=== PATIENT | male | born 1965 | race Hispanic/Latino ===

== ENCOUNTER 2016-05-24 11:50 | Inpatient (IN) | payer BC ==
[~2016-05-24] VITALS: Ht 182.9 cm; Wt 94.0 kg
[~2016-05-24 11:50] MED LIST: ALEVE220 MG PO; FLEXERIL5 MG PO; NAPROSYN375 MG PO; NO HOME MEDS; PERCOCET 5/325M1 TAB PO
--- NOTE | 2016-05-24 12:00 | NUR ---
PATIENT AMBULATED TO LOBBY AWAITING ROOM ASSIGNMENT
--- NOTE | 2016-05-24 12:55 | NUR ---
IN TO ASSESS AND DISCUSS P.O.C.. ALL QUESTIONs ANSWERED
[2016-05-24 13:08] LABS: HEMATOCRIT 47.3 % (39.0-50.0); IMMATURE GRANULOCYTES 0.4 % (0.0-1.0); MEAN CELL VOLUME 89.8 fL CALC (80.0-100.0); MEAN CORPUSCULAR HGB 30.4 pG CALC (26.0-32.0); MEAN CORPUSCULAR HGB CONC 33.8 g/L CALC (32.0-36.0); NEUT# 6.06 thou/uL (1.82-7.42); RED BLOOD COUNT 5.27 mill/uL (4.70-6.10); RED CELL DISTRI WIDTH 11.9 % (11.5-15.5)
[2016-05-24 13:24] LABS: ALBUMIN 4.6 g/dL (3.2-5.0); ALKALINE PHOSPHATASE 84 u/l (38-126); ANION GAP 18 (6-22 (CALC)); BILIRUBIN, TOTAL 0.8 mg/dL (0.0-1.4); BUN 10 mg/dL (9-20); BUN/CREATININE RATIO 10 (12-20 (CALC)); CALCIUM 9.6 mg/dL (8.4-10.2); CARBON DIOXIDE 26 mmol/l (22-30); CHLORIDE 102 mmol/l (95-108); GFR > 60 ML/MIN (>=60 (CALC)); GFR FOR AFR.AMER. > 60 ML/MIN (>=60 (CALC)); GLUCOSE 106 mg/dL (75-110); POTASSIUM 4.6 mmol/l (3.5-5.1); SGOT/AST 22 u/l (17-59); SGPT/ALT 37 u/l (21-72); SODIUM 141 mmol/l (137-146); TOTAL PROTEIN 8.8 g/dL (6.3-8.2)
--- NOTE | 2016-05-24 13:35 | NUR ---
MEDICATED PER ORDER
--- NOTE | 2016-05-24 14:46 | NUR ---
IN FOR REASSESSMENT. PER Pt "PAIN MUCH LESS NOTICABLE"
[2016-05-24 15:10] LABS: URINE BILIRUBIN - DIPSTICK NEGATIVE (NEGATIVE); URINE BLOOD DIPSTICK TRACE-INTACT (NEGATIVE); URINE COLOR YELLOW; URINE GLUCOSE - DIPSTICK NEGATIVE (NEGATIVE); URINE KETONE NEGATIVE (NEGATIVE); URINE LEUK ESTERASE TRACE (Negative); URINE NITRITE - DIPSTICK NEGATIVE (Negative); URINE SPECIFIC GRAVITY >=1.030; URINE UROBILINOGEN - DIPSTICK 0.2 E.U./dL (0.2)
[2016-05-24 15:11] LABS: URINE CLARITY SLIGHT CLOUDY; URINE PROTEIN - DIPSTICK Trace mg/dL (NEG-TRACE)
--- NOTE | 2016-05-24 16:43 | NUR ---
left via stretcher /C w/c to [facility] FOR CT OF Abd
--- NOTE | 2016-05-24 19:08 | NUR ---
PT RETURNED FROM [facility] FOLLOWING CT SCAN.
--- NOTE | 2016-05-24 19:20 | NUR ---
PT C/O ABD PAIN, REQUESTED PAIN MED.
--- NOTE | 2016-05-24 20:26 | NUR ---
SBAR PRINTED TO FLOOR
--- NOTE | 2016-05-24 20:44 | NUR ---
SBAR RE-PRINTED TO [id number]
--- NOTE | 2016-05-24 20:56 | NUR ---
REPORT GIVEN TO RICH OZUNA MED/SURG
[2016-05-24 21:05] VITALS: BP 128/66
--- NOTE | 2016-05-24 21:05 | NUR ---
PT TRANSFERED TO FLOOR IN STABLE CONDITION VIA STRETCHER ACCOMPANIED BY MIRANDARN;PT AMBULATED TO STANDING SCALE WITH STEADY GAIT;RESPIRATIONS EVEN AND UNLABORED ON RA;IV FLUIDS INFUSING WELL TO LAC;PT COMPLAINS OF NAUSEA;EMESIS BAG PROVIDED;AWAITING MD ORDERS;VS OBTAINED;PT DENIES ANY PAIN AT THIS TIME;PT ORIENTED TO ROOM AND CALL LIGHT SYSTEM AND VERBALIZES UNDERSTANDING;ASSESSMENT COMPLETED;PT MADE AWARE OF NPO STATUS;PT COMPLAINS OF LEFT LOWER ABDOMINAL TENDERNESS;PT STATED LAST BM TO BE ON 05/24 AND WAS DIARRHEA;SKIN INTACT;PT DENIES ANY OTHER NEEDS AT THIS TIME;URINAL AT BEDSIDE;BED IN LOWEST POSITION WITH CALL LIGHT IN REACH;WILL CONTINUE TO MONITOR
--- NOTE | 2016-05-24 21:05 | NUR ---
PT TO 290 VIA STRETCHER WITH RN.
--- NOTE | 2016-05-25 00:45 | NUR ---
PT SLEEPING IN SEMI FOWLERS POSITION;IV FLUIDS INFUSING WELL;NO S/S OF DISTRESS NOTED;URINAL AT BEDSIDE;RESPIRATIONS EVEN AND UNLABORED ON RA;BED IN LOWEST POSITION WITH CALL LIGHT IN REACH;WILL CONTINUE TO MONITOR
[2016-05-25 03:29] VITALS: BP 121/71
--- NOTE | 2016-05-25 03:30 | NUR ---
PT RESTING IN SUPINE POSITION;PT COMPLAINS OF LOWER BACK AND ABDOMINAL PAIN RATING RATING 7/10 ON THE PAIN SCALE AND REQUESTS PRN PAIN MEDICATION;PT TO BE MEDICATED ACCORDINGLY;IV FLUIDS INFUSING WELL TO LAC;PT DENIES ANY OTHER NEEDS AT THIS TIME;BED IN LOWEST POSITION WITH CALL LIGHT IN REACH;WILL CONTINUE TO MONITOR
[2016-05-25 05:37] LABS: HEMATOCRIT 40.2 % (39.0-50.0); HEMOGLOBIN 13.5 g/dl (14.0-18.0); IMMATURE GRANULOCYTES 0.2 % (0.0-1.0); MEAN CELL VOLUME 90.1 fL CALC (80.0-100.0); MEAN CORPUSCULAR HGB 30.3 pG CALC (26.0-32.0); MEAN CORPUSCULAR HGB CONC 33.6 g/L CALC (32.0-36.0); NEUT# 4.03 thou/uL (1.82-7.42); RED BLOOD COUNT 4.46 mill/uL (4.70-6.10); RED CELL DISTRI WIDTH 11.8 % (11.5-15.5)
[2016-05-25 05:43] LABS: ALBUMIN 3.4 g/dL (3.2-5.0); ALKALINE PHOSPHATASE 56 u/l (38-126); ANION GAP 9 (6-22 (CALC)); BILIRUBIN, TOTAL 0.5 mg/dL (0.0-1.4); BUN 8 mg/dL (9-20); BUN/CREATININE RATIO 9 (12-20 (CALC)); CALCIUM 8.5 mg/dL (8.4-10.2); CARBON DIOXIDE 30 mmol/l (22-30); CHLORIDE 104 mmol/l (95-108); CREATININE 0.9 mg/dL (0.7-1.3); GFR > 60 ML/MIN (>=60 (CALC)); GFR FOR AFR.AMER. > 60 ML/MIN (>=60 (CALC)); GLUCOSE 118 mg/dL (75-110); POTASSIUM 4.4 mmol/l (3.5-5.1); SGOT/AST 17 u/l (17-59); SGPT/ALT 35 u/l (21-72); SODIUM 138 mmol/l (137-146); TOTAL PROTEIN 6.3 g/dL (6.3-8.2)
--- NOTE | 2016-05-25 07:00 | NUR ---
RECEIVED BEDSIDE REPORT FROM RICH OZUNA. PT RESTING IN SEMI FOWLERS POSITION WITH EYES CLOSED, AWAKENS EASILY. RESPS EVEN AN DUNLABORED ON ROOM AIR. #22 LAC INFUSING WITHOUT DIFFICULTY, SITE APPEARS HEALTHY. VOICES NO C/O AT THIS TIME. PLAN OF CARE DISCUSSED. SAFETY PRECAUTIONS REINFORCED. BED IN LOWEST POSITION WITH WHEELS LOCKED. CALL LIGHT WITHIN REACH.
[2016-05-25 08:11] VITALS: BP 114/63
--- NOTE | 2016-05-25 12:00 | NUR ---
TOLERATING CLEAR LIQUID DIET WITHIUT C/O NAUSEA OR VOMITING. MEDCIATED WITH MORPHINE 2MG IVP FOR C/O 7/10 ABD PAIN. CALL LIGHT WITHIN REACH. FAMILY AT BEDSIDE.
--- NOTE | 2016-05-25 14:05 | NUR ---
DR SANTIAGO IN TO SE PT, NEW ORDERS RECEIVED.
[2016-05-25 16:00] VITALS: BP 120/70
--- NOTE | 2016-05-25 18:54 | NUR ---
IN SEMI FOWLERS, RESPS EVEN AND UNLABORED ON ROOM AIR. C/O 09/18 ABD PAIN, MEDICATED WITH MORPHINE 2MG IVP FOR RELIEF. PO FLUIDS OFFERED. CALL LIGHT WITHIN REACH. ENCOURAGED PT TO CALL FOR ANY NEEDS.
[2016-05-25 19:27] VITALS: BP 147/73
--- NOTE | 2016-05-25 20:10 | NUR ---
BEDSIDE REPORT RECEIVED FROM NIGHAT SHEPARD. PT SITTING UP IN BED READING A BOOK. MORPHINE GIVEN AT SHIFT CHANGE, PT CONTINUES TO REPORT PAIN TO ABDOMEN. NO RESPIRTORY DISTRESS NOTED. PLAN OF CARE DISCUSSED. ENCOURAGED TO VERBALIZE CONCERNS. STATES UNDERSTANDING. SAFETY MEASURES IN PLACE. CALL LIGHT SYSTEM REVIEWED AND IN REACH.
--- NOTE | 2016-05-26 02:30 | NUR ---
PT RESTING SUPINE IN BED, ALERT AND ORIENTED. STATES THAT PAIN MEDICATION WAS EFFECTIVE. NO RESPIRATORY DISTRESS NOTED. IV SITE APPEARS HEALTHY WITHOUT SIGNS OF INFILTRATION OR PHLEBITIS. PT DENIES NEEDS AT THIS TIME. REMINDED TO CALL FOR ANY CHANGES OR NEEDS. SAFETY MEASURES IN PLACE. CALL LIGHT WITHIN REACH.
[2016-05-26 04:00] VITALS: BP 110/70
--- NOTE | 2016-05-26 04:00 | NUR ---
PT C/O NAUSEA AT THIS TIME AND ZOFRAN GIVEN WITH GOOD EFFECT. INSTRUCTED TO NOTIFY NURSE OF ANY FURTHER CHANGES. SAFETY MEASURES IN PLACE. CALL LIGHT WITHIN REACH.
[2016-05-26 05:26] LABS: ANION GAP 13 (6-22 (CALC)); BUN 9 mg/dL (9-20); BUN/CREATININE RATIO 10 (12-20 (CALC)); CARBON DIOXIDE 27 mmol/l (22-30); CHLORIDE 102 mmol/l (95-108); CREATININE 0.9 mg/dL (0.7-1.3); GFR > 60 ML/MIN (>=60 (CALC)); GFR FOR AFR.AMER. > 60 ML/MIN (>=60 (CALC)); GLUCOSE 91 mg/dL (75-110); POTASSIUM 4.2 mmol/l (3.5-5.1); SODIUM 138 mmol/l (137-146)
[2016-05-26 05:32] LABS: HEMATOCRIT 42.1 % (39.0-50.0); HEMOGLOBIN 14.1 g/dl (14.0-18.0); IMMATURE GRANULOCYTES 0.2 % (0.0-1.0); MEAN CORPUSCULAR HGB 30.1 pG CALC (26.0-32.0); MEAN CORPUSCULAR HGB CONC 33.5 g/L CALC (32.0-36.0); NEUT# 2.88 thou/uL (1.82-7.42); RED BLOOD COUNT 4.68 mill/uL (4.70-6.10); RED CELL DISTRI WIDTH 11.8 % (11.5-15.5)
--- NOTE | 2016-05-26 07:35 | NUR ---
PT IS RELAXING IN BED WITH NO DISTRESS NOTED. IV SITE IS FREE FROM REDNESS OR EDEMA.
[2016-05-26 08:03] VITALS: BP 114/76
--- NOTE | 2016-05-26 08:06 | NUR ---
ASSESSMENT IS COMPLETED: LEFT LOWER QUAD PAIN. IV SITE IS FREE FROM REDNESS OR EDEMA. CONTINUE TO OBSERVE AND MONITOR.
[2016-05-26] MEDS ORDERED: TRAMADOL HCL50 MG PO (10:33)
[2016-05-26] MEDS ORDERED: Levaquin PO (10:33)
[2016-05-26] MEDS ORDERED: METRONIDAZOL500 MG PO (10:33)
--- NOTE | 2016-05-26 12:30 | NUR ---
PT IS SITTING UP IN BED WITH AT BEDSIDE. NO DISTRESS NOTED. IV SITE IS FREE FROM REDNESS OR EDEMA. IV SITE DISCONTINUED CATHETER INTACT. DISCHARGE INSTRUCTIONS GIVEN.
--- NOTE | 2016-05-26 12:45 | NUR ---
Discharge instructions given. Patient verbalizes understanding of same. Discharged in stable condition via Wheelchair to Home with family. All belongings sent with pt.
== END 2016-05-26 12:34 | disposition home or self-care (01) | DRG 391 ==
LOC: ENPENDDIS → ED 11:50 → ED-I 19:22 → ED 20:23 → MS2 20:24
PROVIDERS: Emergency Medicine; Internal Medicine; ADMIT Internal Medicine; ATTEND Internal Medicine
DX: K57.32 Diverticulitis of large intestine without perforation or abscess without bleeding (principal); J18.9 Pneumonia, unspecified organism
CPT/HCPCS: J1650

== ENCOUNTER 2016-06-18 18:15 | Inpatient (IN) | payer BC ==
[~2016-06-18] VITALS: Ht 182.9 cm; Wt 97.6 kg
[~2016-06-18 18:15] MED LIST changes: +Levaquin PO; +METRONIDAZOL500 MG PO; +TRAMADOL HCL50 MG PO
--- NOTE | 2016-06-18 18:21 | NUR ---
PATIENT TO ROOM VIA EMS PROVIDER AT BEDSIDE EVALUATING PATIENT.
--- NOTE | 2016-06-18 18:30 | NUR ---
COMPLETED 1000CC BOLUS NS EMS FLUIDS.
--- NOTE | 2016-06-18 18:35 | NUR ---
PT C/O LLQ PAIN, DENIES BM X5 DAYS. PT STATES FEVER, CHILLS AND VOMITING X4 DAYS
--- NOTE | 2016-06-18 18:45 | NUR ---
LUNGS CLEAR, BS HYPERACTIVE AND TYMPANIC. ABD DISTENDED AND FIRM. LLQ TENDER TO TOUCH.
[2016-06-18] MEDS ORDERED: FLEXERIL5 MG PO (18:58)
--- NOTE | 2016-06-18 19:01 | NUR ---
COMPLETED 1000CC BOLUS NS. PT TOLERATED WELL.VSS.
[2016-06-18 19:19] LABS: ALBUMIN 2.7 g/dL (3.2-5.0); ALKALINE PHOSPHATASE 86 u/l (38-126); AMYLASE < 30 u/l (30-110); ANION GAP 10 (6-22 (CALC)); BILIRUBIN, TOTAL 0.7 mg/dL (0.0-1.4); BUN 13 mg/dL (9-20); BUN/CREATININE RATIO 16 (12-20 (CALC)); CALCIUM 8.1 mg/dL (8.4-10.2); CARBON DIOXIDE 24 mmol/l (22-30); CHLORIDE 106 mmol/l (95-108); CREATININE 0.8 mg/dL (0.7-1.3); GFR > 60 ML/MIN (>=60 (CALC)); GFR FOR AFR.AMER. > 60 ML/MIN (>=60 (CALC)); GLUCOSE 145 mg/dL (75-110); LIPASE 44 u/l (23-300); POTASSIUM 3.1 mmol/l (3.5-5.1); SGOT/AST 24 u/l (17-59); SGPT/ALT 38 u/l (21-72); SODIUM 137 mmol/l (137-146); TOTAL PROTEIN 5.3 g/dL (6.3-8.2)
--- NOTE | 2016-06-18 19:20 | NUR ---
URINE SENT OFF ON PT. NOTICED SOME BLOOD IN URINE, PT DENIES ANY PAIN OR BURNING WITH URINATION WHEN ASKED
[2016-06-18 19:26] LABS: URINE BILIRUBIN - DIPSTICK NEGATIVE (NEGATIVE); URINE BLOOD DIPSTICK LARGE (NEGATIVE); URINE COLOR YELLOW; URINE GLUCOSE - DIPSTICK 250 mg/dL (NEGATIVE); URINE KETONE TRACE mg/dL (NEGATIVE); URINE NITRITE - DIPSTICK NEGATIVE (Negative); URINE PH 5.5 (4.5-8.0); URINE PROTEIN - DIPSTICK 30 mg/dL (NEG-TRACE)
[2016-06-18 19:38] LABS: INFLUENZA A NONE DETECTED (NONE DETECT); INFLUENZA B NONE DETECTED (NONE DETECT)
--- NOTE | 2016-06-18 19:39 | NUR ---
LAB IS COMING TO DO A REDRAW OF THE CBC.
[2016-06-18 19:46] LABS: URINE CLARITY TURBID; URINE LEUK ESTERASE SMALL (NEGATIVE)
[2016-06-18 19:52] LABS: HEMATOCRIT 36.9 % (39.0-50.0); HEMOGLOBIN 12.5 g/dl (14.0-18.0); IMMATURE GRANULOCYTES 0.2 % (0.0-1.0); MEAN CELL VOLUME 88.3 fL CALC (80.0-100.0); MEAN CORPUSCULAR HGB 29.9 pG CALC (26.0-32.0); MEAN CORPUSCULAR HGB CONC 33.9 g/L CALC (32.0-36.0); RED BLOOD COUNT 4.18 mill/uL (4.70-6.10); RED CELL DISTRI WIDTH 12.8 % (11.5-15.5)
[2016-06-18 19:53] LABS: PLATELET COUNT 65 thou/uL (130-400)
[2016-06-18 19:56] LABS: BAND 43 % (0-8); MANUAL DIFFERENTIAL YES
[2016-06-18 20:03] LABS: URINE BACTERIA FEW hpf; URINE RBC TNTC RBC/hpf (0-5); URINE SQUAMOUS EPITHELIAL CELL FEW EPI/hpf (0-FEW)
--- NOTE | 2016-06-18 20:25 | NUR ---
2ND LACTIC ACID DRAWN
--- NOTE | 2016-06-18 21:14 | NUR ---
pt resting quietly on stretcher, with family at bedside
--- NOTE | 2016-06-18 21:20 | NUR ---
PT STATES FEELING A LITTLE NAUSEATED. NOTIFIED, ORDERS RECEIVED
--- NOTE | 2016-06-18 21:49 | NUR ---
REPORT GIVEN TO NATE FOR MED SURG ADMISSION. GAVE REPORT TO JOSE ALEJANDRO DISLA WHO WILL BE TAKING OVER TRANSPORT OF PT.
--- NOTE | 2016-06-18 21:55 | NUR ---
PT. TRANSFERED TO [facility] VIA STRETCHER. NO C/O AT THIS TIME.
[2016-06-18 21:57] VITALS: BP 112/68
--- NOTE | 2016-06-18 21:57 | NUR ---
RECEIVED FROM ER VIA STRETCHER ACCOMPANIED BY ER TAMRA, AMBULATING TO STANDING SCALE THEN TO BED WITH STEADY GAIT. A/O X3, RESPIRATIONS EVEN AND UNLABORED. IV FLUIDS INFUSING TO RW AT 200CC/HR. DENIES NAUSEA AT THIS TIME. PROVIDED WITH CLEAR LIQUIDS AND CRAKERS. MEDICATED WITH DILAUDID IN ER AND STATES PAIN TO ABDOMEN IS 3/[address] HOLLINS CALLED AND NOTIFIED OF PT'S ARRIVAL TO [facility], NEW ORDERS RECEIVED, PT AWARE. WILL BOLUS WITH 2 MORE NS 1000ML BAGS, MORPHINE, TYLENOL AND ZOFRAN PRN. CALL LIGHT IN REACH, WILL CONTINUE TO MONITOR.
[2016-06-18 23:30] VITALS: BP 109/71
--- NOTE | 2016-06-19 00:54 | NUR ---
2000ML BOLUS COMPLETE, NS INFUSING AT 100ML/HR. VOICES NO CONCERNS.
[2016-06-19 03:38] VITALS: BP 97/65
--- NOTE | 2016-06-19 04:33 | NUR ---
MEDICATED WITH MORPHINE 2MG IV FOR C/O LLQ PAIN 09/18. DENIES NAUSEA. IV FLUIDS INFUSING TO RFA WITH NO COMPLICATIONS. CALL LIGHT IN REACH.
[2016-06-19 07:32] VITALS: BP 111/70
--- NOTE | 2016-06-19 07:59 | NUR ---
DR. COLES IN TO SEE PT; PLAN OF CARE DISCUSSED
--- NOTE | 2016-06-19 08:51 | NUR ---
DR. DALY NOTIFIED OF CONSULT
[2016-06-19 09:36] LABS: ANION GAP 10 (6-22 (CALC)); BUN 9 mg/dL (9-20); BUN/CREATININE RATIO 12 (12-20 (CALC)); CALCIUM 7.8 mg/dL (8.4-10.2); CARBON DIOXIDE 25 mmol/l (22-30); CHLORIDE 109 mmol/l (95-108); CREATININE 0.7 mg/dL (0.7-1.3); GFR > 60 ML/MIN (>=60 (CALC)); GFR FOR AFR.AMER. > 60 ML/MIN (>=60 (CALC)); GLUCOSE 116 mg/dL (75-110); POTASSIUM 3.7 mmol/l (3.5-5.1); SODIUM 140 mmol/l (137-146)
--- NOTE | 2016-06-19 09:53 | NUR ---
PT MEDICATED FOR LLQ PAIN AND RT FLANK PAIN 08/19; CALL HERNANDEZ WITHIN REACH; WILL CONTINUE TO MONITOR.
--- NOTE | 2016-06-19 10:56 | NUR ---
DR. DALY IN TO SEE PT; PLAN OF CARE DISCUSSED
--- NOTE | 2016-06-19 11:55 | NUR ---
PT MEDICATED FOR C/O FLANAGAN; IVF INFUSING WELL; CALL HERNANDEZ WITHIN REACH; WILL CONTINUE TO MONITOR
[2016-06-19 12:18] VITALS: BP 116/76
--- NOTE | 2016-06-19 15:41 | NUR ---
PT RESTING IN BED WITH EYES CLOSED; NO S/S OF DISTRESS NOTED; IVF INFUSING TO RFA; IV SITE APPEARS HEALTHY; CALL LIGHT WITHIN REACH; WILL CONTINUE TO MONITOR
[2016-06-19 15:45] VITALS: BP 117/67
[2016-06-19 19:18] VITALS: BP 120/70
--- NOTE | 2016-06-19 20:04 | NUR ---
PT WATCHING TV RESPIRATIONS EVEN AND UNLABORED C/O HEADACHE 08/19, MEDICATED WITH TORADOL 15MG IV. ADMITS TO ABDOMINAL PAIN 05/19, BS ACTIVE. IV FLUIDS INFUSING TO RFA WITH NO PROBLEM. CLEAR LIQUID DIET AT BED SIDE.
--- NOTE | 2016-06-19 21:50 | NUR ---
C/O ABDOMINAL PAIN 5/10, MEDICATED WITH MORPHINE 2MG IV AT THIS TIME.
[2016-06-20] VITALS (7 sets, daily range): BP systolic 108–123; BP diastolic 63–76
--- NOTE | 2016-06-20 00:45 | NUR ---
RESTING IN SEMIFOWLERS WITH EYES CLOSED, RESPIRATIONS EVEN AND UNLABORED. CALL LIGHT IN REACH.
--- NOTE | 2016-06-20 05:21 | NUR ---
PT CALLED C/O HEADACHE 08/19 REQUESTING TORADOL, MEDICATED WITH 15MG IV.
[2016-06-20 05:55] LABS: HEMATOCRIT 37.5 % (39.0-50.0); HEMOGLOBIN 12.6 g/dl (14.0-18.0); IMMATURE GRANULOCYTES 0.3 % (0.0-1.0); MEAN CELL VOLUME 90.8 fL CALC (80.0-100.0); MEAN CORPUSCULAR HGB 30.5 pG CALC (26.0-32.0); MEAN CORPUSCULAR HGB CONC 33.6 g/L CALC (32.0-36.0); NEUT# 4.36 thou/uL (1.82-7.42); RED BLOOD COUNT 4.13 mill/uL (4.70-6.10); RED CELL DISTRI WIDTH 12.6 % (11.5-15.5)
[2016-06-20 06:21] LABS: ANION GAP 11 (6-22 (CALC)); BUN 5 mg/dL (9-20); BUN/CREATININE RATIO 7 (12-20 (CALC)); CALCIUM 8.6 mg/dL (8.4-10.2); CARBON DIOXIDE 26 mmol/l (22-30); CHLORIDE 106 mmol/l (95-108); CREATININE 0.8 mg/dL (0.7-1.3); GFR > 60 ML/MIN (>=60 (CALC)); GFR FOR AFR.AMER. > 60 ML/MIN (>=60 (CALC)); GLUCOSE 77 mg/dL (75-110); POTASSIUM 3.6 mmol/l (3.5-5.1); SODIUM 139 mmol/l (137-146)
--- NOTE | 2016-06-20 06:23 | NUR ---
C/O SHARP ABDOMINAL PAIN 06/19, MEDICATED WITH MORPHINE 2MG IV AT THIS TIME.
--- NOTE | 2016-06-20 07:00 | NUR ---
DR. COLES IN TO SEE PT; PLAN OF CARE DISCUSSED
--- NOTE | 2016-06-20 09:30 | NUR ---
PT WITH WASH CLOTH ON FOREHEAD; STATES ABD PAIN 2/10, DOES NOT WANT ANY MEDS AT THIS TIME; CALL HERNANDEZ WITHIN REACH; WILL CONTINUE TO MONITOR.
--- NOTE | 2016-06-20 13:10 | NUR ---
PT INSISITING ON MORPHINE 2 MG IV FOR FLANAGAN 07/19; PT MEDICATED; IVF INFUSING WITHOUT DIFFICULTY; NO OTHER COMPLAINTS VOICED; CALL HERNANDEZ WITHIN REACH; WILL CONTINUE TO MONITOR.
--- NOTE | 2016-06-20 16:50 | NUR ---
PT RESTING WITH EYES CLOSED; IVF INFUSING WITHOUT DIFFICULTY; CALL HERNANDEZ WITHIN REACH; WILL CONTINUE TO MONITOR.
--- NOTE | 2016-06-20 20:47 | NUR ---
RESTING IN BED WITH EYES CLOSED RESPIRATIONS EVEN AND UNLABORED ON RA, ADMITS TO ABDOMEN FEELING BETTER, C/O HEADACHE 07/19. CALL LIGHT IN REACH.
--- NOTE | 2016-06-20 21:58 | NUR ---
MEDICATED WITH MORPHINE 2MG IV FOR C/O ABDOMINAL PAIN 07/19. CLEAR LIQUIDS AT BED SIDE.
--- NOTE | 2016-06-21 01:47 | NUR ---
MEDICATED WITH ZOFRAN 4MG IV FOR C/O NAUSEA.
[2016-06-21 04:05] VITALS: BP 128/61
[2016-06-21 07:06] LABS: HEMATOCRIT 34.6 % (39.0-50.0); HEMOGLOBIN 11.9 g/dl (14.0-18.0); MEAN CELL VOLUME 89.2 fL CALC (80.0-100.0); MEAN CORPUSCULAR HGB 30.7 pG CALC (26.0-32.0); MEAN CORPUSCULAR HGB CONC 34.4 g/L CALC (32.0-36.0); RED BLOOD COUNT 3.88 mill/uL (4.70-6.10); RED CELL DISTRI WIDTH 12.7 % (11.5-15.5)
--- NOTE | 2016-06-21 07:23 | NUR ---
BEDSIDE REPORT RECEIVED FROM LAITH SULLIVAN. PT REPORTS MILD LLQ ABDOMINAL PAIN, 3 ON SCALE OF 0-10. PLAN OF CARE, ORDER FOR CT SCAN THIS AM DISCUSSED. REPORTING OF CONCERNS ENCOURAGED. CALL LIGHT REVIEWED AND IN REACH. PT STATES UNDERSTANDING.
[2016-06-21 07:27] LABS: ANION GAP 12 (6-22 (CALC)); BUN 7 mg/dL (9-20); BUN/CREATININE RATIO 9 (12-20 (CALC)); CALCIUM 8.5 mg/dL (8.4-10.2); CARBON DIOXIDE 27 mmol/l (22-30); CHLORIDE 106 mmol/l (95-108); CREATININE 0.8 mg/dL (0.7-1.3); GFR > 60 ML/MIN (>=60 (CALC)); GFR FOR AFR.AMER. > 60 ML/MIN (>=60 (CALC)); GLUCOSE 82 mg/dL (75-110); POTASSIUM 3.7 mmol/l (3.5-5.1); SODIUM 141 mmol/l (137-146)
[2016-06-21 08:09] VITALS: BP 132/79
--- NOTE | 2016-06-21 11:30 | NUR ---
RESULTS OF CT CALLED TO DR. COLES AND DR. DALY. DR. DALY ORDERED OK TO DISCHARGE, FOLLOW-UP ON SUNDAY, SOFT DIET AND ADVANCE TOLERATED. DRIVER COURIER OFELIA IN TO EDUCATE ON SOFT DIET. PT STATES UNDERSTANDING.
[2016-06-21] MEDS ORDERED: METRONIDAZOL500 MG PO (11:42)
[2016-06-21] MEDS ORDERED: ZOFRAN ODT4 MG PO (11:42)
[2016-06-21] MEDS ORDERED: CIPROFLOXACN500 MG PO (11:42)
--- NOTE | 2016-06-21 12:49 | NUR ---
Discharge instructions given. Patient verbalizes understanding of same. Discharged in stable condition via Wheelchair to Home with friend. All belongings sent with pt.
--- NOTE | 2016-06-24 08:40 | NUR ---
PHARMACY MEDICATION FOLLOW-UP Patient was seen in ED on 06/18/16 Cultures were reviewed from: Blood Patient was discharged with Rx for:CIPRO, ANGEL C&S report came back with No Growth PLAN: Recommended: No Change Comment: DIVERTICULITIS
== END 2016-06-21 12:56 | disposition home or self-care (01) | DRG 392 ==
LOC: ENPENDDIS → ED 18:15 → ED-I 21:00 → ED 21:33 → MS2 21:34
PROVIDERS: Emergency Medicine; Internal Medicine; ADMIT Internal Medicine; ATTEND Internal Medicine
DX: K57.20 Diverticulitis of large intestine with perforation and abscess without bleeding (principal); D69.6 Thrombocytopenia, unspecified; E86.0 Dehydration; E87.6 Hypokalemia
CPT/HCPCS: J1650; Q9967

== ENCOUNTER 2018-07-05 15:22 | Emergency (ER) | payer BC ==
[~2018-07-05] VITALS: Ht 182.9 cm; Wt 80.0 kg
[~2018-07-05 15:22] MED LIST changes: +CIPROFLOXACN500 MG PO; +ZOFRAN ODT4 MG PO
[2018-07-05 16:20] LABS: HEMATOCRIT 41.2 % (39.0-50.0); HEMOGLOBIN 13.8 g/dl (14.0-18.0); IMMATURE GRANULOCYTES 0.2 % (0.0-5.0); MEAN CORPUSCULAR HGB 31.2 pG CALC (26.0-32.0); MEAN CORPUSCULAR HGB CONC 33.5 g/L CALC (32.0-36.0); NEUT# 2.7 thou/uL (1.82-7.42); RED BLOOD COUNT 4.43 mill/uL (4.70-6.10); RED CELL DISTRI WIDTH 12.3 % (11.5-15.5)
[2018-07-05 16:33] LABS: ALBUMIN 3.6 g/dL (3.2-5.0); ALKALINE PHOSPHATASE 68 u/l (38-126); ANION GAP 10 (6-22 (CALC)); BILIRUBIN, TOTAL 0.4 mg/dL (0.0-1.4); BUN 16 mg/dL (9-20); BUN/CREATININE RATIO 21 (12-20 (CALC)); CARBON DIOXIDE 27 mmol/l (22-30); CHLORIDE 110 mmol/l (95-108); CREATININE 0.8 mg/dL (0.7-1.3); GFR > 60 ML/MIN (>=60 (CALC)); GFR FOR AFR.AMER. > 60 ML/MIN (>=60 (CALC)); SGOT/AST 28 u/l (17-59); SODIUM 143 mmol/l (137-146); TOTAL PROTEIN 6.1 g/dL (6.3-8.2)
[2018-07-05 16:45] LABS: MYOGLOBIN 36 ng/mL (0 - 121)
[2018-07-05] MEDS ORDERED: MELOXICAM7.5 MG PO (16:49)
[2018-07-05] MEDS ORDERED: GABAPENTIN100 MG PO (16:49)
[2018-07-05] MEDS ORDERED: PAXIL30 MG PO (16:49)
[2018-07-05] MEDS ORDERED: REQUIP0.5 MG PO (16:49)
[2018-07-05 16:58] LABS: URINE BILIRUBIN - DIPSTICK NEGATIVE (NEGATIVE); URINE BLOOD DIPSTICK NEGATIVE (NEGATIVE); URINE COLOR YELLOW; URINE GLUCOSE - DIPSTICK NEGATIVE (NEGATIVE); URINE KETONE NEGATIVE (NEGATIVE); URINE LEUK ESTERASE TRACE (NEGATIVE); URINE PROTEIN - DIPSTICK NEGATIVE (NEG-TRACE); URINE UROBILINOGEN - DIPSTICK 0.2 E.U./dL (0.2)
[2018-07-05 16:59] LABS: URINE NITRITE - DIPSTICK POSITIVE (Negative)
[2018-07-05 17:04] LABS: TSH, 3RD GENERATION 1.32 uIU/mL (0.47 - 4.68)
[2018-07-05 17:07] LABS: URINE BACTERIA MANY hpf; URINE SQUAMOUS EPITHELIAL CELL FEW EPI/hpf (0-FEW)
[2018-07-05 17:08] LABS: BARBITURATES NEGATIVE (NEGATIVE); COCAINE NEGATIVE (NEGATIVE); METHADONE NEGATIVE (NEGATIVE); OXCYCODONE NEGATIVE (NEGATIVE); TETRAHYDROCANNABIONOL NEGATIVE (NEGATIVE); TRICYLIC ANTIDEPRESSANTS NEGATIVE (NEGATIVE)
[2018-07-05] MEDS ORDERED: CIPROFLOXACN500 MG PO (17:51)
[2018-07-05 18:09] VITALS: BP 127/80
== END 2018-07-05 18:22 | disposition home or self-care (01) | DRG 312 ==
LOC: ED 15:22
PROVIDERS: Emergency Medicine
DX: R55 Syncope and collapse (principal); N39.0 Urinary tract infection, site not specified; B96.20 Unspecified Escherichia coli [E. coli] as the cause of diseases classified elsewhere

== ENCOUNTER 2019-01-30 11:34 | Emergency (ER) | payer OTHER, BC ==
[~2019-01-30] VITALS: Ht 182.9 cm; Wt 75.0 kg
[~2019-01-30 11:34] MED LIST changes: +GABAPENTIN100 MG PO; +MELOXICAM7.5 MG PO; +PAXIL30 MG PO; +REQUIP0.5 MG PO
[2019-01-30] MEDS ORDERED: FLUOXETINE10 M2 PO (12:30)
[2019-01-30] MEDS ORDERED: TRAMADOL HCL50 MG PO (12:35)
[2019-01-30] MEDS ORDERED: PROAIR HFA108 MCG/AC PO (12:37)
[2019-01-30] MEDS ORDERED: AMOXICILLIN500 M2 PO (12:38)
[2019-01-30] MEDS ORDERED: VIAGRA100 MG PO (12:40)
[2019-01-30] MEDS ORDERED: TEMAZEPAM15 MG PO (12:41)
[2019-01-30] MEDS ORDERED: BUPROPION HCL150 M1 PO (12:42)
[2019-01-30] MEDS ORDERED: RESTORIL15 MG PO (12:44)
[2019-01-30 13:45] VITALS: BP 133/81
== END 2019-01-30 13:45 | disposition home or self-care (01) | DRG 556 ==
LOC: ED 11:34
DX: M79.631 Pain in right forearm (principal); W20.8XXA Other cause of strike by thrown, projected or falling object, initial encounter

== ENCOUNTER 2019-08-20 17:14 | Emergency (ER) | payer BC ==
[~2019-08-20 17:14] MED LIST changes: +AMOXICILLIN500 M2 PO; +BUPROPION HCL150 M1 PO; +FLUOXETINE10 M2 PO; +PROAIR HFA108 MCG/AC PO; +RESTORIL15 MG PO; +TEMAZEPAM15 MG PO; +VIAGRA100 MG PO
[2019-08-20] MEDS ORDERED: ULTRAM50 MG PO (18:08)
[2019-08-20 18:42] VITALS: BP 129/70
== END 2019-08-20 18:46 | disposition home or self-care (01) | DRG 563 ==
LOC: ED 17:14
DX: S83.91XA Sprain of unspecified site of right knee, initial encounter (principal); X50.0XXA Overexertion from strenuous movement or load, initial encounter; Y93.89 Activity, other specified; Y92.89 Other specified places as the place of occurrence of the external cause; Y99.0 Civilian activity done for income or pay
CPT/HCPCS: L1830

== ENCOUNTER 2019-09-13 15:02 | Inpatient (IN) | payer BC ==
[~2019-09-13] VITALS: Ht 182.9 cm; Wt 87.3 kg
[~2019-09-13 15:02] MED LIST changes: +ULTRAM50 MG PO
--- NOTE | 2019-09-13 15:02 | NUR ---
TO ROOM VIA EMS, FOR BEDSIDE TRIAGE.
--- NOTE | 2019-09-13 16:00 | NUR ---
PT TOLERATED IV ACCESS, LAB WORK ETC...WITHOUT INCDENTIO
--- NOTE | 2019-09-13 16:26 | NUR ---
PT RESTING NO COMPLAINTS, REQUESTED 2BD WARM BLANKET TEMPE RECHECK 97.6 TEMPORAL. BLANKET PROVIDED
--- NOTE | 2019-09-13 16:29 | NUR ---
MEDICATED OPRDERED FOR PAIN ETC... IVF IFNFUSING AT PRESCRIBED RATE. PT CONTINUES TO SNIFFLE AND CRY WHEN STAFF ENTERS THE ROOM. CALL DAVID KEBEDE.
[2019-09-13 16:30] LABS: HEMATOCRIT 37.1 % (39.0-50.0); HEMOGLOBIN 12.3 g/dl (14.0-18.0); IMMATURE GRANULOCYTES 0.8 % (0.0-5.0); MEAN CELL VOLUME 91.2 fL CALC (80.0-100.0); MEAN CORPUSCULAR HGB 30.2 pG CALC (26.0-32.0); MEAN CORPUSCULAR HGB CONC 33.2 g/dL CAL (32.0-36.0); NEUT# 3.5 thou/uL (1.82-7.42); RED BLOOD COUNT 4.07 mill/uL (4.70-6.10); RED CELL DISTRI WIDTH 12.1 % (11.5-15.5)
[2019-09-13 17:01] LABS: D-DIMER 7.64 mg/L (0.19-0.60)
[2019-09-13 17:11] LABS: ALBUMIN 3.5 g/dL (3.2-5.0); ALKALINE PHOSPHATASE 88 u/l (38-126); BUN 16 mg/dL (9-20); BUN/CREATININE RATIO 23 (12-20 (CALC)); CARBON DIOXIDE 29 mmol/l (22-30); CHLORIDE 100 mmol/l (95-108); CREATININE 0.7 mg/dL (0.7-1.3); ETHYL ALCOHOL 0 mg/dl (0-30); GFR > 60 ML/MIN (>=60 (CALC)); GFR FOR AFR.AMER. > 60 ML/MIN (>=60 (CALC)); LIPASE 45 u/l (23-300); POTASSIUM 3.4 mmol/l (3.5-5.1); TOTAL PROTEIN 6.5 g/dL (6.3-8.2)
[2019-09-13 17:12] LABS: ANION GAP 8 (6-22 (CALC)); BILIRUBIN, TOTAL 0.8 mg/dL (0.0-1.4); SGOT/AST 51 u/l (17-59); SODIUM 134 mmol/l (137-146)
[2019-09-13 17:26] LABS: ACT PARTIAL THROMBO TIME 27.9 SECONDS (20.0-32.5); PROTHROMBIN TIME 10.2 SECONDS (9.0-12.5)
--- NOTE | 2019-09-13 17:45 | NUR ---
PT REMAINS IN RADIOLOGY.
--- NOTE | 2019-09-13 18:10 | NUR ---
RETURNED FROM CT, IV ABT STARTED ORDERED, IVF CONTINUE PT STATES PAIN MEDICATION HELPED MINIMALLY BUT ITS "BETTER THAN NOTHING", CALL HERNANDEZ WITHIN REACH.
[2019-09-13] MEDS ORDERED: GABAPENTIN300 M2 PO (18:31)
[2019-09-13] MEDS ORDERED: CELEBREX200 M1 PO (18:32)
[2019-09-13] MEDS ORDERED: TAMSULOSIN HCL0.4 MG PO (18:33)
[2019-09-13] MEDS ORDERED: PROSCAR5 MG PO (18:33)
[2019-09-13] MEDS ORDERED: DICLOFENAC SODI75 MG PO (18:34)
[2019-09-13 18:49] LABS: URINE BILIRUBIN - DIPSTICK NEGATIVE (NEGATIVE); URINE BLOOD DIPSTICK SMALL (NEGATIVE); URINE COLOR YELLOW; URINE GLUCOSE - DIPSTICK NEGATIVE (NEGATIVE); URINE KETONE TRACE mg/dL (NEGATIVE); URINE LEUK ESTERASE SMALL (NEGATIVE); URINE NITRITE - DIPSTICK NEGATIVE (Negative); URINE PROTEIN - DIPSTICK 30 mg/dL (NEG-TRACE); URINE SPECIFIC GRAVITY >=1.030
--- NOTE | 2019-09-13 18:55 | NUR ---
MD ATTEMPTED LP W/O SUCCESS, PT TOLERATED WITHOUT INCIDENT, CALL HERNANDEZ WITHIN REACH AND AWARE OF POTENTIAL ADMISSION
[2019-09-13 19:03] LABS: URINE BACTERIA MANY hpf; URINE SQUAMOUS EPITHELIAL CELL FEW EPI/hpf (0-FEW); URINE WBC 50-100 WBC/hpf (0-5)
--- NOTE | 2019-09-13 19:10 | NUR ---
RECEIVED REPORT. PT RESTING. NAD. VSS. SAT AT 90-91%. AWAITING ABG.
--- NOTE | 2019-09-13 19:25 | NUR ---
O2 @ 2 LPM NC APPLIED. SAT INCREASED TO 96 %. IV ABT INFUSING.
--- NOTE | 2019-09-13 19:50 | NUR ---
AWAITING NURSE TO CALL BACK FOR REPORT. PT RESTING. VSS. HOB ELEVATED.
--- NOTE | 2019-09-13 20:38 | NUR ---
PT RESTING. NAD. AWAITING [facility] SURG TO GET REPORT.
--- NOTE | 2019-09-13 20:40 | NUR ---
PT BED ADJUSTED. CELL PHONE PLUGGED IN. PT PLAYING ON CELL PHONE. NAD. VSS.
--- NOTE | 2019-09-13 21:48 | NUR ---
REPORT TO AL NURSE/MED-SURG
--- NOTE | 2019-09-13 21:59 | NUR ---
PT TO FLOOR VIA STRETCHER WITH O2/POCKET MONITOR/IV ANTIBIOTICS INFUSING VIA PUMP. PT RESTING. NAD. AMBULATORY TO BED. PT MASKED EN ROUTE TO FLOOR.
[2019-09-13 22:08] VITALS: BP 127/66
--- NOTE | 2019-09-13 22:08 | NUR ---
PT ARRIVED TO THE FLOOR ACCOMPANIED BY ED STAFF. PT ALERT AND ORIENTED. VS OBTAINED AND ASSESSMENT COMPLETED. RESPERATIONS EVEN AND UNLABORED ON O2 @ 2L VIA NC. LUNGS SOUND DIMINISHED. PEDAL PULSES STRONF. PT REPORTS HAVING MUSCULAR PAIN IN HIS NECK RATING IT A 5/10. MD TO BE NOTIFIED. PT ORIENTED TO ROOM AND CALL HERNANDEZ SYSTEM. SAFETY PRECAUTIONS IN PLACE. WILL CONTINUE TO MONITOR.
[2019-09-13 23:49] VITALS: BP 123/64
--- NOTE | 2019-09-14 00:30 | NUR ---
PT RESTING IN BED, RESPIRATIONS EVEN AND UNLABORED ON O2 @ 2L VIA NC. NO S/S OF DISTRESS AT THIS TIME. WILL CONTINUE TO MONITOR.
[2019-09-14 04:03] VITALS: BP 117/71
--- NOTE | 2019-09-14 04:07 | NUR ---
PT RESTING IN BED. RESPIRATIONS EVEN AND UNLABORED ON O2 @ 2L VIA NC. TELE IN PLACE. WILL CONTINUE TO MONITOR.
[2019-09-14 05:15] LABS: BASO% 0 % (0-3); EOS% 0 % (0-8); HEMATOCRIT 36.4 % (39.0-50.0); HEMOGLOBIN 12.1 g/dl (14.0-18.0); IMMATURE GRANULOCYTES 0.2 % (0.0-5.0); LYMPH% 14 % (15-41); MEAN CORPUSCULAR HGB 30.3 pG CALC (26.0-32.0); MEAN CORPUSCULAR HGB CONC 33.2 g/dL CAL (32.0-36.0); MONO% 5 % (2-13); NEUT# 3.29 thou/uL (1.82-7.42); NEUT% 81 % (42-76); PLATELET COUNT 146 thou/uL (130-400); RED CELL DISTRI WIDTH 12.2 % (11.5-15.5)
[2019-09-14 05:47] LABS: ALBUMIN 3.3 g/dL (3.2-5.0); ALKALINE PHOSPHATASE 87 u/l (38-126); ANION GAP 8 (6-22 (CALC)); BILIRUBIN, TOTAL 0.5 mg/dL (0.0-1.4); BUN 17 mg/dL (9-20); BUN/CREATININE RATIO 26 (12-20 (CALC)); CARBON DIOXIDE 28 mmol/l (22-30); CHLORIDE 103 mmol/l (95-108); CREATININE 0.6 mg/dL (0.7-1.3); GFR > 60 ML/MIN (>=60 (CALC)); GFR FOR AFR.AMER. > 60 ML/MIN (>=60 (CALC)); POTASSIUM 3.9 mmol/l (3.5-5.1); SGOT/AST 41 u/l (17-59); SODIUM 135 mmol/l (137-146); TOTAL PROTEIN 6.1 g/dL (6.3-8.2)
[2019-09-14 06:08] LABS: C-REACTIVE PROTEIN 25.1 mg/dL (0-0.9)
--- NOTE | 2019-09-14 07:30 | NUR ---
PT RESTING IN BED, NO SIGNS OF DISTRESS NOTED, RESP EVEN AND UNLABORED. PT ON 02 2L NC, EXTENDED PT'S TUBING. VITALS OBTAINED, DISCUSSED POC. PT STATES HE HAD A BM THIS AM AND NOTED BRIGHT RED BLOOD IN TOILET. PT DENIES HX OF HEMORRHOIDS STATES HE HAD A COLONOSCOPY BEFORE AND HAD THE SAME ISSUE. WILL NOTIFY MD. NOTED PT DOES NOT MOVE HIS NECK PT REMAINS FACING FOWARD BUT MOVES HIS EYES. ASSESSMENT COMPLETED, CALL LIGHT IN REACH,CONTINUE TO MONITOR.
[2019-09-14 07:32] VITALS: BP 118/73
--- NOTE | 2019-09-14 09:30 | NUR ---
ED CALLED PT HR IN 120'S, ENTERED ROOM AND PT WAS STANDING IN SHOWER NAKED HOLDING TELEMETRY IN HIS HAND, AND IV FLUIDS INFUSING AND IV PUMP IN BATHROOM, IV SL AND COVERED SO PT MAY SHOWER, TELE REMOVED. PT STATES HE HAD A BM AND DID NOT FLUSH NOTED BROWN SOFT STOOL AND SMALL AMTS OF BRIGHT RED BLOOD IN TOILET. PT ASSISTED TO SHOWER, INFORMED PT TO PULL CORD FOR ASSISTANCE, VERBALIZED UNDERSTANDING.
[2019-09-14 11:11] VITALS: BP 122/65
--- NOTE | 2019-09-14 12:00 | NUR ---
PT RESTING IN BED, WHEN EVALUATED BY MD PT HAD A COUGHING SPELL, C/O SEVERE PAIN TO HIS NECK WHEN HE COUGHS. PER MD ORDERS PT MEDICATED PER MAY. PT AGREES WITH PLAN AND CONTENT WITH NEW ORDERS. SPOKE TO PT'S WHILE IN ROOM, CONCERNED PT IS NOT TAKING HIS ANTIDEPRESSANT. WILL NOTIFY MD. CALL LIGHT IN REACH,CONTINUE TO MONITOR.
[2019-09-14] MEDS ORDERED: WELLBUTRIN150 M2 PO (12:41)
[2019-09-14] MEDS ORDERED: RESTORIL15 MG PO (12:41)
--- NOTE | 2019-09-14 13:25 | NUR ---
SOHAIL FONG ARRIVED FOR LUMBAR PUNCTURE, DISCUSSED WITH PT AND CONSENT OBTAINED. PT TOLERATED PROCEDURE WELL. DISCUSSED WITH PT NEW IV SITE, PT AGREES. NEW IV SITE OBTAINED, PT TOLERATED WELL. CALL LIGHT IN REACH,CONTINUE TO MONITOR.
[2019-09-14 15:00] VITALS: BP 129/68
--- NOTE | 2019-09-14 16:23 | NUR ---
PT RESTING IN BED, MEDICATED FOR TEMP 99.0 PT STATES HE FEELS LIKE HE'S "GETTING HOTTER". PT ALSO GIVEN FLEXARIL, CALL LIGHT IN REACH,CONTINUE TO MONITOR.
--- NOTE | 2019-09-14 17:37 | NUR ---
pt resting in bed, dinner tray provided. pt medicated for cough, call light in reach,continue to monitor.
[2019-09-14 19:00] VITALS: BP 122/58
--- NOTE | 2019-09-14 21:17 | NUR ---
PT MEDICATED AND ASSESSMENT COMPLETED AT THIS TIME. PT REPORTS "HEARING MUSIC" NO MUSIC AUDIBLE BY ARBORIST CLIMBER. PT INSISTS IT IS THE "SAME SONG PLAYING OVER AND OVER" I AM UNABLE TO HEAR ANY MUSIC AND EACH ROOM ON EITHER SIDE OF PT IS EMPTY OF PT'S AND TV'S ARE OFF. PT ASKED ME TO LOOK IN THE DRAWERS, ETC AROUND THE ROOM FOR A CELL PHONE LEFT BY PREVIOUS PT OR SOMETHING, NO CELL PHONE FOUND IN ROOM. NO OTHER DISTRESS'S NOTED AT THIS TIME. PT HAD COUGHING SPELL WHILE I WAS IN THE ROOM. SNACK PROVIDED PER REQUEST. DENIES ANY OTHER NEEDS AT THIS TIME.
[2019-09-14 23:50] VITALS: BP 113/78
[2019-09-15] VITALS (7 sets, daily range): BP systolic 99–135; BP diastolic 57–79
--- NOTE | 2019-09-15 02:44 | NUR ---
PT MEDICATED FOR PAIN REPORTED 8/10 IN NECK AND HEAD. MUSCLE RELAXANT AND PAIN MEDICATION ADMINISTERED. PT IS VERY STIFF NECKED AT THIS TIME, BUT REPORTS THAT THE MUSCLE RELAXANT WAS AFFECTIVE AT RELIEVING THE STIFFNESS PREVIOUSLY. V/S ASSESSED AND COUGH SYRUP PROVIDED ALSO AT THIS TIME. PT REPORTS COUGHING SPELLS. V/S ARE STABLE AT THIS TIME. IVF REPLENISHED AND RUNNING TO SITE IN RFA/SITE APPEARS HEALTHY.
--- NOTE | 2019-09-15 04:56 | NUR ---
PT CALLED TO REPORT EXTREME PAIN TO HIS NECK RADIATING DOWN THROUGH HIS SHOULDERS. PT PROVIDED MORPHINE FOR PAIN AT THIS TIME. PT REFUSES PILLOW AND IS USING A BLANKET FOR HEAD SUPPORT, REFUSES SUPPORT UNDER NECK. DENIES HEAD PAIN AT THIS TIME. DISCUSSED DRINKING CAFENATED COFFEE/PROVIDED TO ASSISTED W/EARLIER HEADACHE.
--- NOTE | 2019-09-15 07:00 | NUR ---
PT note Patient screened and it does not appear he has any rehab needs at this time We will proceed per medical
--- NOTE | 2019-09-15 08:00 | NUR ---
BEDSIDE REPORT RECEIVED FROM NIGHAT REDD. PT IN SEMI FOWLERS POSITION. REPORTS SEVERE BACK PAIN, CRYING. PAIN BEGINS AT BASE OF NECK, RADIATES DOWN SPINE AND BILATERAL ARMS. TINGLING IN BILATERAL ARMS/FINGERS ASSOCIATED. PT. ALERT AND ORIENTED TO PERSON AND PLACE. DISORIENTED TO TIME AND SEQUENCE OF EVENTS. BELIEVES HE HAS BEEN HERE FOR 6 DAYS, INSTEAD OF ONE. REPORTS HEARING MUSIC PLAYING NONSTOP, BODY DESIGNER DOES NOT HEAR THIS MUSIC. GENERALIZED SWELLING TO ALL EXTREMITIES NTED. O2 @ 2L VIA NC, DRY COUGH NOTED. COUARSE BREATH SOUNDS. CALL LIGHT REVIEWED AND IN REACH. REPORTING OF CONCERNS ENCOURAGED.
--- NOTE | 2019-09-15 12:20 | NUR ---
DR. SANTIAGO IN TO SEE PT. PLAN OF CARE UPDATED. PT. REPORTS SEVERE BACK PAIN. MORPHINE IV ADMINISTERED. WILL MONITOR FOR EFFECTIVNESS.
[2019-09-15 14:52] LABS: BASO% 0 % (0-3); EOS% 0 % (0-8); HEMATOCRIT 33.1 % (39.0-50.0); IMMATURE GRANULOCYTES 0.7 % (0.0-5.0); LYMPH% 10 % (15-41); MEAN CELL VOLUME 91.4 fL CALC (80.0-100.0); MEAN CORPUSCULAR HGB 30.4 pG CALC (26.0-32.0); MEAN CORPUSCULAR HGB CONC 33.2 g/dL CAL (32.0-36.0); MONO% 4 % (2-13); NEUT# 7.69 thou/uL (1.82-7.42); NEUT% 85 % (42-76); RED BLOOD COUNT 3.62 mill/uL (4.70-6.10); RED CELL DISTRI WIDTH 12.9 % (11.5-15.5)
[2019-09-15 14:58] LABS: PLATELET COUNT 197 thou/uL (130-400)
--- NOTE | 2019-09-15 15:00 | NUR ---
PT. REPORTS HX OF "INSERTIONS" INTO HIS URETHRA WITH FOREIGN OBJECTS. PT EDUCATED ON RISK OF INJURY AND INFECTION, STATES UNDERSTANDING. OZZY FERNANDEZ NOTIFIED.
[2019-09-15 15:13] LABS: ALBUMIN 3.3 g/dL (3.2-5.0); ALKALINE PHOSPHATASE 81 u/l (38-126); ANION GAP 8 (6-22 (CALC)); BILIRUBIN, TOTAL 0.5 mg/dL (0.0-1.4); BUN 13 mg/dL (9-20); BUN/CREATININE RATIO 17 (12-20 (CALC)); C-REACTIVE PROTEIN 8.7 mg/dL (0-0.9); CARBON DIOXIDE 28 mmol/l (22-30); CHLORIDE 102 mmol/l (95-108); CREATININE 0.8 mg/dL (0.7-1.3); GFR > 60 ML/MIN (>=60 (CALC)); GFR FOR AFR.AMER. > 60 ML/MIN (>=60 (CALC)); POTASSIUM 3.5 mmol/l (3.5-5.1); SGOT/AST 43 u/l (17-59); SODIUM 134 mmol/l (137-146); TOTAL PROTEIN 5.9 g/dL (6.3-8.2)
--- NOTE | 2019-09-15 18:00 | NUR ---
PT REPORTS MILD BACK PAIN, "NOT ENOUGH FOR ANY MEDICINE". ABLE TO ADJUST POSITION WITH MORE EASE THAN PREVIOUSLY DURING SHIFT. CALL LIGHT WITHIN REACH.
--- NOTE | 2019-09-15 20:19 | NUR ---
ASSESSMENT COMPLETED. NO DISTRESS NOTED; IV SITE PATENT AND INFUSING ORDERED IVF WELL. PT. CONTINUES TO REPORT INTERMITTENT NUMBNESS TO HANDS AND C/O SPINAL AND SHOULDER PAIN 5/10 AND MEDICATED WITH ORDERED PRN ULTRAM; WILL REASSESS. URINAL EMPTIED. ENCOURAGED TO CALL FOR ANY NEEDS. CALL LIGHT IS IN REACH.
--- NOTE | 2019-09-16 | NUR ---
RESTING IN BED WITH EYES CLOSED; RESP. EVEN AND UNLABORED.
[2019-09-16 00:43] VITALS: BP 117/69
[2019-09-16 03:05] VITALS: BP 112/71
--- NOTE | 2019-09-16 05:00 | NUR ---
PT. GIVEN MOM TO ASSIST WITH BM. ICE PACKS PROVIDED PER PT'S REQUEST AND APPLIED TO SHOULDERS. WILL REASSESS.
--- NOTE | 2019-09-16 06:05 | NUR ---
[id number]- WENT IN TO GIVE PRN MORPHINE FOR PAIN PER PT'S REQUEST AND PT. REQUESTS IV TO BE CHANGED, IV SITE REMOVED FROM RAC WITH CATHETER TIP INTACT. NEW IV STARTED TO LEFT HAND X1 ATTEMPT WITH GOOD BLOOD RETURN AND FLUSHED WITH NS. MEDICATED WITH ORDERED PRN MORPHINE ONCE NEW IV ESTABLISHED; WILL REASSESS. URINAL EMPTIED. CALL LIGHT IS IN REACH. DENIES FURTHER NEEDS.
[2019-09-16 07:40] VITALS: BP 133/74
--- NOTE | 2019-09-16 07:40 | NUR ---
PT ASSESSMENT IS COMPLETED: IV SITE IS FREE FROM REDNESS OR EDEMA. HR IS REG,PULSES ARE STRONG X4, ABD IS SOFT WITH ACTIVE BS. BREATH SOUNDS ARE CLEAR AND DIMINISHED. O2 @ 2LITERS WITH NC. TELE MONITOR IN PLACE. PT C/O "SPASMS IN BACK, ARMS AND LEGS". MEDICATED PRIOR TO ASSESSMENT.
--- NOTE | 2019-09-16 07:42 | NUR ---
c/o spasm in the back sually tkaes"icey ot".
--- NOTE | 2019-09-16 09:02 | NUR ---
GAVE PT A HOT PACK TO PLACE WHERE HE FELT NECESSARY.
[2019-09-16 10:30] VITALS: BP 117/64
--- NOTE | 2019-09-16 12:30 | NUR ---
PT IS RELAXING IN BED PLAYING WITH HIS PHONE. NO DISTRESS NOTED. IV SITE IS FREE FROM REDNESS OR EDEMA.
[2019-09-16 14:55] VITALS: BP 102/58
--- NOTE | 2019-09-16 16:30 | NUR ---
PT IS RELAXING IN BED , DOING ARM EXERCISES TO STRETCH THE ARM. NO DISTRESS NOTED. IV SITE IS FREE FROM REDNESS OR EDEMA.
--- NOTE | 2019-09-16 17:55 | NUR ---
PT IS STATING " I AM HEARING MUSIC TODAY . COMING THROUGH THE WALL".
[2019-09-16 19:08] VITALS: BP 128/68
--- NOTE | 2019-09-16 19:55 | NUR ---
PT. AWAKENED FOR ASSESSMENT;ASSESSMENT COMPLETED. DENIES NEEDS/PAIN. SCHED MEDS AT THIS TIME GIVEN. STILL WITH NO BM AND HAS ACTIVE BS. PT. ABLE TO MOVE ALL EXTREMETIES. STILL REPORTING HEARING MUSIC THAT IS NOT THERE. UPDATED ON POC. ENCOURAGED TO CALL FOR ANY NEEDS. CALL LIGHT IS IN REACH.
--- NOTE | 2019-09-16 20:13 | NUR ---
PT note- patient is screened for PT intervention and there are no needs at this time
--- NOTE | 2019-09-16 21:27 | NUR ---
PT. C/O SHOULDER AND BACK PAIN; MEDICATED WITH ORDERED PRN ULTRAM; WILL REASSESS.DENIES FURTHER NEEDS. CALL LIGHT IS IN REACH.
[2019-09-17 00:17] VITALS: BP 121/79
--- NOTE | 2019-09-17 00:30 | NUR ---
RESTING IN BED WITH EYES CLOSED; RESP. EVEN AND UNLABORED.
[2019-09-17 04:19] VITALS: BP 125/75
--- NOTE | 2019-09-17 04:36 | NUR ---
AM LABS OBTAINED; VSS. PT. IS ON RA AND SPO2 93%; HE HAS HAD THE O2 OFF ALL NIGHT. PT. REPORTING HE IS SO STIFF AND IS IN SEVERE PAIN; MEDICATED WITH ORDERED PRN FLEXERIL AND MORPHINE PER ORDER. PRUNE JUICE PROVIDED AND IS ENCOURAGED TO DRINK TO ASSIST WITH BM. CALL LIGHT IS IN REACH. WILL CONTINUE TO MONITOR. PO FLUIDS OFFERED. URINAL EMPTIED.
[2019-09-17 05:09] LABS: HEMATOCRIT 31.7 % (39.0-50.0); HEMOGLOBIN 10.3 g/dl (14.0-18.0); IMMATURE GRANULOCYTES 2.7 % (0.0-5.0); MEAN CELL VOLUME 93.5 fL CALC (80.0-100.0); MEAN CORPUSCULAR HGB 30.4 pG CALC (26.0-32.0); MEAN CORPUSCULAR HGB CONC 32.5 g/dL CAL (32.0-36.0); NEUT# 5.31 thou/uL (1.82-7.42); RED BLOOD COUNT 3.39 mill/uL (4.70-6.10); RED CELL DISTRI WIDTH 13.1 % (11.5-15.5)
[2019-09-17 05:31] LABS: ALKALINE PHOSPHATASE 68 u/l (38-126); ANION GAP 7 (6-22 (CALC)); BILIRUBIN, TOTAL 0.4 mg/dL (0.0-1.4); BUN 14 mg/dL (9-20); BUN/CREATININE RATIO 25 (12-20 (CALC)); C-REACTIVE PROTEIN 6.6 mg/dL (0-0.9); CARBON DIOXIDE 26 mmol/l (22-30); CHLORIDE 106 mmol/l (95-108); CREATININE 0.5 mg/dL (0.7-1.3); GFR > 60 ML/MIN (>=60 (CALC)); GFR FOR AFR.AMER. > 60 ML/MIN (>=60 (CALC)); POTASSIUM 3.7 mmol/l (3.5-5.1); SGOT/AST 47 u/l (17-59); SODIUM 135 mmol/l (137-146); TOTAL PROTEIN 5.6 g/dL (6.3-8.2)
--- NOTE | 2019-09-17 06:24 | NUR ---
PT. C/O PAIN AND MEDICATED WITH ORDERED PRN ULTRAM; WILL REASSESS.
[2019-09-17 08:00] VITALS: BP 123/73
--- NOTE | 2019-09-17 08:00 | NUR ---
ASSESSMENT IS COMPLTED: IV SITE IS FREE FROM REDNESS OR EDEMA. HR IS REG,PULSES ARE STRONG X4, ABD IS SOFT WITH ACTIVE BS. BREATH SOUNDS ARE CLEAR BILATERALLY. TELE MONITOR IN PLACE. CONTINUES TO C/O PAIN ON THE BACK AND ARMS. ALREADY MEDICATED PRIOR TO SHIFT CHANGE.,
--- NOTE | 2019-09-17 09:12 | NUR ---
PT C/O ALOT ABOUT PAIN IN THE BACK. FAMILY MEMBER INSITITING ON PAIN MEDICATION AND ICE./
--- NOTE | 2019-09-17 10:00 | NUR ---
PT ASKED FOR ANOTHER ICE PACK. FOR HIS BACK AND SIDES.
[2019-09-17 11:35] VITALS: BP 148/74
--- NOTE | 2019-09-17 12:30 | NUR ---
PT HAS BEEN RELAXING IN BED WITH NO DISTRESS NOTED. IV SITE IS FREE FROM REDNESS OR EDEMA.
--- NOTE | 2019-09-17 14:05 | NUR ---
PT HAD A LARGE SOFT BM DARK IN COLOR. THREW THE SUPPOSITORY AWAY IN THE TOILET
[2019-09-17 16:20] VITALS: BP 140/71
--- NOTE | 2019-09-17 16:23 | NUR ---
PT IS RELAXING IN BED WITH NO DISTRESS NTOED. IV SITE IS FREE FROM REDNESS OR EDEMA.
[2019-09-17 19:16] VITALS: BP 125/71
--- NOTE | 2019-09-17 20:23 | NUR ---
ASSESSMENT COMPLETED. NO DISTRESS NOTED. C/O PAIN AND MEDICATED WITH ORDERED PRN ULTRAM ALONG WITH OTHER SCHED MEDS. IV SITE PATENT AND ORDERED IVF INFUSING. UPDATED WITH POC; VERBALIZES UNDERSTANDING. PT. ENCOURAGED TO DO ROM WITH BUE R/T SLIGHT SWELLING IN ARMS. ENCOURAGED TO CALL FOR ANY NEEDS.
--- NOTE | 2019-09-18 | NUR ---
RESTING IN BED WITH EYES CLOSED; RESP. EVEN AND UNLABORED.
--- NOTE | 2019-09-18 01:57 | NUR ---
PT. C/O FLANAGAN AND BUE PAIN; MEDICATED WITH ORDERED PRN TYLENOL AND FLEXERIL; WILL REASSESS. ICE PACKS RE-FILLED AND APPLIED TO BILATERAL SHOULDERS. PO FLUIDS OFFERED.
[2019-09-18 03:42] VITALS: BP 142/68
[2019-09-18 05:27] LABS: HEMATOCRIT 33.4 % (39.0-50.0); HEMOGLOBIN 10.8 g/dl (14.0-18.0); IMMATURE GRANULOCYTES 4.7 % (0.0-5.0); MEAN CORPUSCULAR HGB 30.1 pG CALC (26.0-32.0); MEAN CORPUSCULAR HGB CONC 32.3 g/dL CAL (32.0-36.0); NEUT# 4.56 thou/uL (1.82-7.42); RED BLOOD COUNT 3.59 mill/uL (4.70-6.10)
[2019-09-18 05:56] LABS: ALKALINE PHOSPHATASE 68 u/l (38-126); ANION GAP 8 (6-22 (CALC)); BILIRUBIN, TOTAL 0.3 mg/dL (0.0-1.4); BUN 11 mg/dL (9-20); BUN/CREATININE RATIO 18 (12-20 (CALC)); C-REACTIVE PROTEIN 4.4 mg/dL (0-0.9); CARBON DIOXIDE 28 mmol/l (22-30); CHLORIDE 102 mmol/l (95-108); CREATININE 0.6 mg/dL (0.7-1.3); GFR > 60 ML/MIN (>=60 (CALC)); GFR FOR AFR.AMER. > 60 ML/MIN (>=60 (CALC)); POTASSIUM 3.5 mmol/l (3.5-5.1); SGOT/AST 35 u/l (17-59); SODIUM 135 mmol/l (137-146)
[2019-09-18 08:10] VITALS: BP 152/81
--- NOTE | 2019-09-18 08:10 | NUR ---
ASSESSMENT IS COMPLTED: IV SITE IS FREE FROM REDNESS OR EDEMA. HR IS REG,PULSES ARE STRONG X4, ABD IS SOFT WITH ACTIVE BS. BREATH SOUNSD ARE CLEAR BILATERALLY, NO C/O SOB, CONTINUE TO OSBERVE AND MONITOR.
--- NOTE | 2019-09-18 11:50 | NUR ---
SPOUSE CALLED AND INFORMED "BEEN TRYING TO GET IN TOUCH WITH PT FOR AN HOUR" CHECKED ON PT HAS BEEN SITTING UP AND HAD HIS PHONE ON THE END OF THE BED WILL CALL HER.
--- NOTE | 2019-09-18 12:30 | NUR ---
PT HAS BEEN RELAXING IN BED WITH NO DISTRESS NOTED. IV SITE IS FREE FROM REDNESS OR EDEMA. CONTINUE TO OSBERVE AND MONITOR.
[2019-09-18 15:15] VITALS: BP 135/63
--- NOTE | 2019-09-18 16:30 | NUR ---
PT CONTINUES TO REST WITH NO DISTRESS NOTED. IV SITE IS FREE FROM REDNESS OR EDEMA.
[2019-09-18 19:30] VITALS: BP 125/69
--- NOTE | 2019-09-18 21:16 | NUR ---
PT MEDICATED ORDERS PROVIDE AND ASSESSMENT COMPLETED AT THIS TIME. SNACK PROVIDED. PT IS MOVING MORE AND REPORTS FEELING BETTER AND HOPES TO GO HOME TOMORROW. MEDICATED FOR PAIN AT THIS TIME 3/10 ON PAIN SCALE.
--- NOTE | 2019-09-19 00:28 | NUR ---
JUICE/SNACKS PROVIDED, PT DENIES ANY OTHER NEEDS, BUT HAS BEEN ENCOURAGED TO CALL NEEDS ARISE.
[2019-09-19 03:25] VITALS: BP 121/69
--- NOTE | 2019-09-19 04:15 | NUR ---
PT SLEEPING, RN EMBEDDED OBTAINED V/S. NO S/O DISTRESS NOTED. CALL LIGHT W/IN REACH.
--- NOTE | 2019-09-19 09:36 | NUR ---
RECIEVED REPORT FROM NIGHAT REDD. PT RESTING IN SEMI FOWLERS POSITION UPON ENTERING ROOM. INTRODUCED SELF TO PT AND DISCUSSED POC. PT IS A/OX3 AND AMBULATORY. ASSESSMENT AND VITALS COMPLETED AT THIS TIME. BP 140/79, HR 88, O2 94% ON ROOM AIR. RESPIRATIONS ARE EVEN AND UNLABORED WITH NO SIGNS OF DISTRESS. LUNG SOUNDS ARE DIMINISHED, PT DENIES ANY SOB. HEART RHYTHM IS NORMAL. BOWEL SOUNDS ARE ACTIVE IN ALL QUADRANTS WITH NO TENDERNESS, LAST REPORTED BM 09/18/19. RADIAL AND PEDAL PULSES ARE STRONG WITH NORMAL CAPILLARY REFILL. SKIN IS WARM AND DRY WITH NO EDEMA OR BREAKDOWN. PT COMPLAINS OF A 7/10 PAIN IN NECK AND SHOULDERS, ULTRAM AND FLEXIRIL ADMINISTERED WITH MORNING MED. PT DENIES ANY PAIN OR DISCOMFORTS AT THIS TIME. ALL SAFTEY PRECAUITONS AND ISOLATION PRECAUTIONS REMAIN IN PLACE WITH CALL LIGTH IN REACH. WILL CONTINUE TO MONITOR.
--- NOTE | 2019-09-19 11:30 | NUR ---
AT BEDSIDE DISCUSSING POC
--- NOTE | 2019-09-19 11:39 | NUR ---
REASSESSMENT OF PAIN AT THIS TIME. PT REPORTS PAIN 7/10 STILL. WRITTER INFORMED PT THAT IS WAS TO SOON TO REMEDICATE. PT VERBALIZED UNDERSTANDING. PT GIVEN ICE PACK TO HELP WITH BACK AND SHOULDER PAIN. ALL SAFSAMARIAY P[RECAUTIONS REMAIN IN PLACE WITH CALL LIGHT IN REACH. WILL CONTIUE TO MONITOR.
[2019-09-19] MEDS ORDERED: CYCLOBENZAPR5 MG PO (11:42)
[2019-09-19] MEDS ORDERED: PREDNISONE10 MG PO (11:46)
[2019-09-19] MEDS ORDERED: VANTIN200 M1 PO (11:47)
[2019-09-19] MEDS ORDERED: TRAMADOL HCL50 MG PO (11:47)
--- NOTE | 2019-09-19 11:50 | NUR ---
PT ON PHONE WHEN ENTERING ROOM.PT COMPLAINS OF INCREASED PAIN IN SHOULDERS AND BACK. MORPHINE ADMINISTERED AT THIS TIME. RESPIRATIONS ARE EVEN AND UNALBORED WITH NO SIGNS OF DISTRESS. ALL SAFTEY AND ISOLATION PRECAUTIONS REMAIN IN PLACE WITH CALL LIGHT IN REACH. WILL CONTINUE TO MONITOR.
--- NOTE | 2019-09-19 12:44 | NUR ---
REASSESSMENT OF PAIN AT THIS TIME. RESULTING IN 04/21. RESPIRATIONS ARE EVEN AND UNLABORED. DISCHARGE INSTRUCTIONS ARE ORDERED. PT DENEIS ANY APIN OR DISCOMFORTS AT THIS TIME. ALL SAFTEY PRECAUTIONS IN PLACE WITH CALL LIGHT IN REACH . WILL CONTINUE TO MONITOR
--- NOTE | 2019-09-19 13:21 | NUR ---
EDUCATED PT ON DISCHARGE INSTRUCTIONS AND NEW MEDICATIONS; PREDNISONE, CYLOBENZAPRIBNE, VANTIN, AND TRAMADOL. PT VERBALIZED UNDERSTANDING. IV REMOVED WITH CATHATER STILL INTACT, PT TOLERATED WELL. ALL SAFETY PRECAUTIONS IN PLACE WITH CALL LIGHT IN REACH. AWAITING FOR RIDE AT THIS TIME. WILL CONTINUE TO MONITOR
--- NOTE | 2019-09-19 13:37 | NUR ---
Discharge instructions given. Patient verbalizes understanding of same. Discharged in stable condition via Wheelchair to Home with family. All belongings sent with pt. PT DISCHARGE IN STABLE CONDITION VIA WHEELCHAIR ACCOMPAINED BY WRITTER. PT LEFT WITH ALL BELONGINGS AND DISCHARGE INSTRUCTIONS
== END 2019-09-19 13:37 | disposition home or self-care (01) | DRG 193 ==
LOC: ED 15:02 → ED-I 18:49 → ED 19:02 → ED-I 19:03 → MS2 19:53
PROVIDERS: Nurse Practitioner Family; ADMIT Internal Medicine; ATTEND Internal Medicine
PROC: 00JU3ZZ Inspection of Spinal Canal, Percutaneous Approach (ICD-10-PCS; principal; 2019-09-13)
PROC: 009U3ZX Drainage of Spinal Canal, Percutaneous Approach, Diagnostic (ICD-10-PCS; 2019-09-14)
DX: J18.9 Pneumonia, unspecified organism (principal); J96.01 Acute respiratory failure with hypoxia; N39.0 Urinary tract infection, site not specified; M46.92 Unspecified inflammatory spondylopathy, cervical region; N40.0 Benign prostatic hyperplasia without lower urinary tract symptoms; F32.9 Major depressive disorder, single episode, unspecified; F41.9 Anxiety disorder, unspecified; M62.830 Muscle spasm of back; R19.5 Other fecal abnormalities; B96.20 Unspecified Escherichia coli [E. coli] as the cause of diseases classified elsewhere; Z20.828 Contact with and (suspected) exposure to other viral communicable diseases
CPT/HCPCS: J1650; Q3014; Q9967

== ENCOUNTER 2020-06-15 | Emergency (ER) | payer OTHER ==
[~2020-06-15] MED LIST changes: +CELEBREX200 M1 PO; +CYCLOBENZAPR5 MG PO; +DICLOFENAC SODI75 MG PO; +GABAPENTIN300 M2 PO; +PREDNISONE10 MG PO; +PROSCAR5 MG PO; +TAMSULOSIN HCL0.4 MG PO; +VANTIN200 M1 PO; +WELLBUTRIN150 M2 PO
[2020-06-15] MEDS ORDERED: MELOXICAM7.5 MG PO (11:15)
[2020-06-15] MEDS ORDERED: CELEBREX200 M1 (11:16)
[2020-06-15] MEDS ORDERED: DICLOFENAC SODI75 MG PO (11:16)
[2020-06-15] MEDS ORDERED: ONDANSETRON4 MG PO (15:52)
== END 2020-06-15 15:48 | disposition home or self-care (01) | DRG 206 ==
DX: J22 Unspecified acute lower respiratory infection (principal); R11.10 Vomiting, unspecified; R73.03 Prediabetes; Z20.822 Contact with and (suspected) exposure to COVID-19

== ENCOUNTER 2021-07-12 18:12 | Emergency (ER) | payer OTHER ==
[~2021-07-12] VITALS: Ht 182.9 cm; Wt 90.0 kg
[~2021-07-12 18:12] MED LIST changes: +CELEBREX200 M1; +ONDANSETRON4 MG PO
[2021-07-12 18:59] VITALS: BP 125/84
[2021-07-12 19:15] VITALS: BP 122/75
[2021-07-12 19:30] VITALS: BP 114/78
[2021-07-12 19:56] LABS: IMMATURE GRANULOCYTES 0.1 % (0.0-5.0); MEAN CELL VOLUME 95.7 fL CALC (80.0-100.0); MEAN CORPUSCULAR HGB 31.3 pG CALC (26.0-32.0); MEAN CORPUSCULAR HGB CONC 32.7 g/dL CAL (32.0-36.0); NEUT# 7.88 thou/uL (1.82-7.42); RED BLOOD COUNT 4.22 mill/uL (4.70-6.10); RED CELL DISTRI WIDTH 12.2 % (11.5-15.5)
[2021-07-12 20:01] LABS: ALKALINE PHOSPHATASE 72 u/l (38-126); ANION GAP 10 (6-22 (CALC)); BILIRUBIN, TOTAL 0.4 mg/dL (0.0-1.4); BUN 14 mg/dL (9-20); BUN/CREATININE RATIO 15 (12-20 (CALC)); CARBON DIOXIDE 26 mmol/l (22-30); CHLORIDE 105 mmol/l (95-108); CREATININE 0.9 mg/dL (0.7-1.3); GFR > 60 ML/MIN (>=60 (CALC)); GFR FOR AFR.AMER. > 60 ML/MIN (>=60 (CALC)); POTASSIUM 4.1 mmol/l (3.5-5.1); SGOT/AST 24 u/l (17-59); SODIUM 138 mmol/l (137-146)
[2021-07-12 20:03] LABS: HEMATOCRIT 40.4 % (39.0-50.0); HEMOGLOBIN 13.2 g/dl (14.0-18.0)
[2021-07-12 20:15] LABS: TOTAL PROTEIN 7.5 g/dL (6.3-8.2)
[2021-07-12] MEDS ORDERED: LORTAB5 PO (21:08)
[2021-07-12] MEDS ORDERED: BACTRIM DS1 TAB PO (21:08)
[2021-07-12 21:15] VITALS: BP 102/64
[2021-07-12 21:30] VITALS: BP 107/59
== END 2021-07-12 22:00 | disposition home or self-care (01) | DRG 728 ==
LOC: ED 18:12
PROVIDERS: Nurse Practitioner
DX: N49.2 Inflammatory disorders of scrotum (principal); L53.8 Other specified erythematous conditions